=== PATIENT | female | born 1945 | race Caucasian/White ===

== ENCOUNTER 2021-04-21 17:13 | Emergency (ER) | payer MEDICARE, OTHER ==
[~2021-04-21] VITALS: Ht 157.5 cm; Wt 54.4 kg
[2021-04-21] MEDS ORDERED: CEFUROXIME250 MG PO (17:52)
[2021-04-21] MEDS ORDERED: MUPIROCIN22 GM TOP (17:54)
== END 2021-04-21 18:00 | disposition home or self-care (01) ==
LOC: FSED 17:52
DX: T81.49XA Infection following a procedure, other surgical site, initial encounter (principal); R50.9 Fever, unspecified; I10 Essential (primary) hypertension; Z85.828 Personal history of other malignant neoplasm of skin
CPT/HCPCS: 99282